=== PATIENT | male | born 1945 | race Two or more races ===

== ENCOUNTER 2019-06-15 09:45 | Emergency (ER) | payer SELFPAY ==
[~2019-06-15] VITALS: Ht 175.3 cm; Wt 76.7 kg
[2019-06-15 09:49] VITALS: BP 161/73; Ht 175.3 cm; Wt 76.7 kg
== END 2019-06-15 11:28 | disposition home or self-care (01) ==
LOC: ED 09:45
DX: T83.032A Leakage of nephrostomy catheter, initial encounter (principal); Z85.46 Personal history of malignant neoplasm of prostate

== ENCOUNTER 2019-06-15 13:13 | Emergency (ER) | payer SELFPAY ==
[~2019-06-15] VITALS: Ht 165.1 cm; Wt 76.2 kg
[2019-06-15 13:27] VITALS: BP 129/69; Ht 165.1 cm; Wt 76.2 kg
== END 2019-06-15 14:53 | disposition home or self-care (01) ==
LOC: ED 13:13
DX: T83.032A Leakage of nephrostomy catheter, initial encounter (principal); Z85.46 Personal history of malignant neoplasm of prostate